=== PATIENT | male | born 1945 | race Caucasian/White ===

== ENCOUNTER 2019-01-15 17:09 | Emergency (ER) | payer OTHER, MEDICARE ==
[~2019-01-15] VITALS: Ht 172.7 cm; Wt 72.6 kg
[2019-01-15 17:10] VITALS: BP_SYST 113
[2019-01-15] MEDS ORDERED: METOCLOPRAMIDE HCL 10 MG/2 ML VIAL IVP ONE (18:00)
[2019-01-15 18:18] LABS: BASOPHILS % (AUTO) 0.5 % (0.0-2.0); EOSINOPHILS # (AUTO) 0.1 K/uL (0.0-0.4); EOSINOPHILS % (AUTO) 1.6 % (0.0-4.0); HEMOGLOBIN 14.8 g/dL (14.0-18.0); LYMPHOCYTES # (AUTO) 1.7 K/uL (1.0-5.5); LYMPHOCYTES % (AUTO) 21.4 % (20.5-51.5); MEAN CORPUSCULAR HEMOGLOBIN 32 pg (27-31); MEAN CORPUSCULAR HGB CONC 34 % (32-36); MEAN CORPUSCULAR VOLUME 96 fL (79.0-98.0); MONOCYTES # (AUTO) 0.6 K/uL (0.0-1.0); MONOCYTES % (AUTO) 8.2 % (1.7-9.3); NEUTROPHILS # (AUTO) 5.3 K/uL (1.8-7.7); NEUTROPHILS % (AUTO) 68.3 % (40.0-70.0); PLATELET COUNT (AUTO) 239 K/uL (130-430); RED CELL DISTRIBUTION WIDTH 13.1 % (9.0-15.0); WHITE BLOOD COUNT (AUTO) 7.8 K/uL (4.8-10.8)
[2019-01-15 18:35] LABS: ANION GAP 11 (5-15); CALCIUM 9.7 mg/dL (8.4-11.0); CHLORIDE 105 mmol/L (98-107); CREATININE 0.86 mg/dL (0.55-1.30); GLUCOSE 106 mg/dL (70-99); POTASSIUM 3.8 mmol/L (3.5-5.1); SODIUM SERUM 143 mmol/L (136-145); UREA NITROGEN, BLOOD 15 mg/dL (8-21)
[2019-01-15 18:49] LABS: ALANINE AMINOTRANSFERASE 24 U/L (12-78); ASPARTATE AMINOTRANSFERASE 16 U/L (10-37); LIPASE 291 U/L (73-393); TOTAL BILIRUBIN 1.4 mg/dL (0.0-1.0)
[2019-01-15] MEDS ORDERED: IOHEXOL 100 ML IV ONE (18:55)
[2019-01-15] MEDS ORDERED: LISI2.5T48 PO (19:07)
[2019-01-15 19:33] VITALS: BP_SYST 120
== END 2019-01-15 19:33 | disposition home or self-care (01) ==
LOC: SED 17:09
DX: K22.2 Esophageal obstruction (principal)
CPT/HCPCS: 36415; 70491; 80053; 83690; 85025; 96374; 99284; J2765; Q9967